=== PATIENT | male | born 1955 | race Caucasian/White ===

== ENCOUNTER 2016-06-21 09:17 | Day surgery (SDC) | payer MEDICAID, OTHER ==
[~2016-06-21] VITALS: Ht 170.2 cm; Wt 96.2 kg
[2016-06-21] MEDS ORDERED: LISINOPRIL (10:02)
[2016-06-21] MEDS ORDERED: IBUPROFEN (10:02)
[2016-06-21] MEDS ORDERED: FERROUS SULFATE (10:02)
[2016-06-21 10:04] VITALS: Ht 170.2 cm; Wt 96.2 kg
[2016-06-21] MEDS ORDERED: PROPOFOL 40 ML ONE (10:07)
[2016-06-21 10:20] VITALS: BP 163/79; PULSE 67; RESP 18
[2016-06-21] MEDS ORDERED: CIPROFLOXACIN 400MG/D5W 200 ML ONE (10:29)
[2016-06-21 11:33] VITALS: BP 154/85; RESP 20
--- NOTE | 2016-06-22 01:35 | GILP ---
DATE OF PROCEDURE: PROCEDURES PERFORMED: 1. Esophagogastroduodenoscopy with banding of varicose vein. 2. Colonoscopy with biopsy. INDICATION: A 60-year-old male undergoing this procedure for colon cancer screening and EGD for floridalma veillance for varicose vein. INFORMED CONSENT: The risk of the procedure, related and unrelated complications, anesthetic risks, alternatives discussed and informed consent was obtained. DESCRIPTION OF PROCEDURE: The patient was brought to the GI lab, sedated by the anesthesiologist. After optimal sedation, scope was passed with much ease into esophagus and he had almost grade 4 to 5 varicose veins. He also had a red april sign on some of the varicose veins. Scope was advanced fur ther down into stomach, he had a maynard gastritis. Duodenum, first and second part was within normal l imits. However, the minor ampulla appeared very prominent indicating that the patient might have a pancreatic divisum. Retroversion done. The gastric varicose vein was identified, which was nothing but the extension of the esophageal varicose vein. So this patient had a gastroesophageal varicose vein grade II. The scope was then removed, attached to the scope and 6 columns of vein were successfully banded. Scope was removed with good patient tolerance. IMPRESSION 1. Grade IV to V esophageal varicose veins with a red april sign, 6 of them successfully banded. 2. Gastric varicose vein which was nothing but the extension of the esophageal varicose vein, gastr oesophageal varicose vein type 2. 3. Severe gastritis. 4. Duodenitis. 5. Prominent minor ampulla. Very prominent minor ampulla, so pancreatic divisum needs to be ruled o ut. PLAN: 1. To re-scope the patient in 2 months and obliterate the rest of the varicose vein. 2. We need to do a CBC, CMP, PT, PTT, to make sure he does not have any coagulation abnormality due to cirrhosis of liver. PROCEDURE: Colonoscopy with the biopsy. The patient was turned around, scope was passed with much ease into rectum and advanced all the way into the cecum. Appendiceal orifice and IC valve identified. 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 He had a profuse amount of biliary juice and throughout the colon, while coming out, mucosa thoroughly inspected and multiple flat lianet yps were seen at 20 cm polyp was biopsied and it started oozing easily and since the patient has cir rhosis of liver and we are not aware of his coagulation profile, I decided not to remove the rest of the polyp. There were 10 to 15 polyps, 7 of them were seen in the rectosigmoid colon and few were seen in the descending colon and all were flat polyps which needs to come out. Patient also had lar ge hemorrhoids and rectal varicose vein. IMPRESSION: 1. Portal colonoscopy with multiple red spots seen throughout the colon. 2. Multiple flat polyps, 10 to 15 in number. One of them biopsied. Bleeding easily. 3. Rectal varicose vein. 4. Large hemorrhoids. 5. Negative all the way into the cecum except for the mildly edematous mucosa secondary to portal h ypertension. PLAN: Review the histopathology of the polyp. The patient's coagulation profile needs to be connec herbert before during a colonoscopy. He definitely needs a repeat colonoscopy and removal of all the po lyps. Dictated By: ÁNGELA RIDDLE/ZOHREH Conf#: [id number] DID#: [id number]
== END 2016-06-21 11:51 | disposition home or self-care (01) ==
LOC: GIL 09:17
PROVIDERS: ATTEND Internal Medicine Gastroenterology
DX: Z12.11 Encounter for screening for malignant neoplasm of colon (principal); I85.00 Esophageal varices without bleeding; K29.60 Other gastritis without bleeding; K64.9 Unspecified hemorrhoids; K29.80 Duodenitis without bleeding; K63.5 Polyp of colon
CPT/HCPCS: 43244; 45380; 88305; J0744; Z7610

== ENCOUNTER 2016-12-19 09:39 | Outpatient (CLI) | payer OTHER ==
[~2016-12-19] VITALS: Ht 165.1 cm; Wt 92.3 kg
[~2016-12-19 09:39] MED LIST: FERROUS SULFATE; IBUPROFEN; LISINOPRIL
[2016-12-19 10:00] VITALS: BP 141/74; PULSE 68; RESP 18; Ht 165.1 cm; Wt 92.3 kg
[2016-12-19] MEDS ORDERED: OXYC5CAP17 PO (10:06)
[2016-12-19] MEDS ORDERED: AMLO2.5T78 PO (10:06)
--- NOTE | 2016-12-19 12:48 | CONS ---
Date/Time of Note Date/Time of Note DATE: 12/19/16 TIME: 12:46 Assessment/Plan Assessment/Plan Additional Assessment/Plan [facility] INITIAL OUTPATIENT CONSULTATION NOTE DATE OF CONSULTATION: 12/19/2016 PLACE OF SERVICE: [facility] ASSESSMENT AND PLAN: A very-pleasant 61-year-old gentleman with cryptogenic cirrhosis and approximately a 5 cm hepatocellular carcinoma in segment 7/8 of his liver. Not eligible for surgical resection given degree of portal hypertension and cirrhosis. Will benefit from local therapy to the liver in the form of transarterial chemoembolization (TACE). Radioembolization is an option as well that could be considered after TACE. Liver transplantation should be considered although the patient likely will not be eligible given possibility of renal cell carcinoma as well as his own reported mass in the thyroid. Systemic chemotherapy in the form of sorafenib was also discussed briefly. Patient can benefit from oncology consultation. I obtain the patient' s permission to present his case in a multidisciplinary tumor board fashion. Discussed above in detail including my rationale behind ineligibility for surgical excision and answered all of his questions to the best of my ability. Note that no family was present in the room during our discussions. Patient appeared to understand and agreed with the plans. With above assessment, I've recommended the followin. Continued multidisciplinary care 2. Schedule patient for TACE 3. Consideration for transplant evaluation 4. Evaluation of renal mass 5. Evaluation of thyroid 6. Continued evaluation by gastroenterology. Follow-up with Dr. Ortiz for repeat upper endoscopy due to prominent ampulla (unsure whether this has already been done). 7. Oncology consultation 8. Multidisciplinary tumor board presentation 9. Clinical trial consideration Thank you very much for having me involved in the care of this very pleasant patient and wonderful family. If you have any questions, please feel free to contact me at [phone]. Nature of presenting problem: High severity Please note that, given the extensive number of diagnoses or management options , the extensive amount and/or complexity of data needed to be reviewed, and high risk of complications and/or morbidity or mortality, this qualifies as high complexity type of decision-making. This visit included careful review of more than 100 pages of outside records as well as multiple imaging studies. Disclaimer: Inadvertent spelling and grammatical errors are likely due to EHR/ dictation software use and do not reflect on the quality of delivered patient care. Also, please note that the electronic time recorded on this node does not necessarily reflect the actual time of the visit. Updated clinical summary: Patient is a very-pleasant 61-year-old gentleman with cryptogenic cirrhosis and approximately a 5 cm hepatocellular carcinoma in segment 7/8 of his liver. Comorbidities: 1. Cirrhosis of unclear etiology, diagnosed perhaps in 2013. Complication of portal hypertension (platelets in the 60s) and mild ascites. Labs January 2016: Creatinine 0.59. Potassium 3.9. Total bilirubin 1.5, alkaline phosphatase 107, AST 37, ALT 23, albumin 3.2, platelet count 61,000. Grade 4-5 esophageal varicose veins with a red april sign, status post banding of 6 of these June 2016 (Dr. Ortiz at [facility]). 2. BMI 33.9 3. HDL deficiency 4. Anemia (on iron pills) 5. Hypertension 6. Lumbago with sciatica, right side (status post 2 spinal surgeries: Laminectomy 1984 and 1989 and other surgery of the lower back August 2016) 7. Chronic pain secondary to #6 above 8. Chest pain June 2016 9. History of malignancy in the family with mother being from it ( lung cancer) 10. History of stroke in the father and heart disease in the family. 11. Severe gastritis, duodenitis and prominent minor ampulla with possibility of pancreatic divisum being raised (EGD [facility] June 2016) 12. Rectal varicose vein with large hemorrhoids and multiple flat polyps, 10- 15 in number, bleeding easily and multiple red spots seen throughout the colon on colonoscopy, [facility] June 2016 13. Depression CONSULTATION REQUESTED BY: Eva Castro MD HISTORY OF PRESENT ILLNESS: The patient is a very pleasant 61-year-old gentleman with above-mentioned comorbidities whom we were kindly asked consult regarding surgical management of his liver mass in the setting of cirrhosis. Patient has occasional abdominal discomfort. No obvious major complications of ascites that has required procedures. He was told that he has a thyroid mass and we know that he has a renal mass (scheduled for evaluation). No issues with major diarrhea or blood in the stool. Reports an 18 pound weight loss over the last month. Appetite has been fairly normal. Has known about cirrhosis since he was told in [place] in 2013. No other major complaints during my visit. ALLERGIES: NO KNOWN DRUG ALLERGIES MEDICATIONS Documented in the electronic records and reviewed by me. Please see the electronic records for details. SOCIAL HISTORY: The patient lives with family. 7 children. Born in [place]. . Currently unemployed.-Tob (former smoker, ex-light cigarette smoker ( 1-9 per day));-ETOH (drank occasionally from 817, last time in 2009, quit);-IVDU FAMILY HISTORY: Father with stroke, history of heart disease in the family, mother from lung cancer. There are no other significant medical, surgical or oncologic issues in the family as reported by the patient or reflected in the chart. REVIEW OF SYSTEMS: Other than mentioned above, there were no other pertinent positives or pertinent negatives in an otherwise complete 14 point review of systems. PHYSICAL EXAMINATION GENERAL: The patient appears to be a very pleasant gentleman of descent lying in bed, appearing stated age,] and otherwise in no acute distress. BMI: 33.9 VITAL SIGNS: AVSS (please also see auto important data if available as well as the electronic records) HEENT: Normocephalic and atraumatic. Extraocular muscles and hearing are grossly intact bilaterally and symmetrically. Sclerae are nonicteric. Oral cavity is clear; oral mucosa appear to be pink and moist. Dentition: Fair to poor. NECK: Supple. There is no lymphadenopathy or JVD. There is no submental, submandibular or supraclavicular lymphadenopathy. CHEST: Rises symmetrically with each breath; patient is breathing comfortably. There are no audible wheezes, rales or rhonchi on the gross exam. HEART: Pulse is regular and palpable on the right wrist. Capillary refill is normal. Carotid pulses are palpable bilaterally and symmetrically in the neck. EXTREMITIES: Lower extremities contain no pitting edema around the ankles bilaterally and symmetrically. ABDOMEN: Abdomen is soft, nontender and nondistended. No evidence of ascites, organomegaly, caput medusae, engorged subcutaneous veins, or other abnormalities. There are no peritoneal signs or guarding. Small nontender umbilical hernia noted. SKIN: Appears to be pink and feels warm to touch. NEUROLOGIC: Awake, alert, and follows commands appropriately. LABORATORY DATA: See above. September 2016: Bilirubin 1.9. Albumin 2.9. Hemoglobin A1c 4.6. Alpha-fetoprotein 46.2. INR 1.46. Platelets 54 (66, July 2016). Hepatitis C antibody nonreactive January 2016. IMAGING: See electronic chart. Please note that I've personally reviewed all pertinent available images and I agree in general with their overall reported findings. Outside CT scan abdomen and pelvis 10/13/2016: Cirrhotic liver, 4.9 x 4.2 cm arterially enhancing lesion in segment 7/8 with portal venous washout, LIRADS 5. 15 mm lesion in subcapsular segment 7 with portal venous washout without definite correlate on the arterial phase (series 6, image 14), LIRADS 3. Additional nonenhancing subcentimeter hepatic lesions are noted, for example in segment 5, measuring 10 mm. Likely a cyst. No portal vein thrombosis noted. Stigmata of portal hypertension, including ascites, splenomegaly, upper abdominal varices including esophageal mucosal varices and right colonic wall thickening noted. Arterially enhancing partially exophytic right renal interpolar posterior mass measuring 20 mm, suggestive of renal cell carcinoma, clear cell type. No evidence of renal vein involvement. Nonspecific lymphadenopathy noted throughout the body. Consultation Date/Type/Reason Admit Date/Time Exam/Review of Systems Vital Signs Vitals Vital Signs Date Time Temp Pulse Resp B/P Pulse Ox O2 Delivery O2 Flow Rate FiO2 12/19/16 10:00 98.1 68 18 141/74 96 Room Air AISHWARYA CAMARA M.D. Dec 19, 2016 12:48
== END 2016-12-19 16:43 | disposition home or self-care (01) ==
LOC: HPC 09:39
PROVIDERS: ATTEND Transplant Surgery
DX: C22.0 Liver cell carcinoma (principal); K74.69 Other cirrhosis of liver; K76.6 Portal hypertension; D64.9 Anemia, unspecified; I10 Essential (primary) hypertension; M54.41 Lumbago with sciatica, right side; G89.29 Other chronic pain; Z80.1 Family history of malignant neoplasm of trachea, bronchus and lung; Z82.3 Family history of stroke; K29.70 Gastritis, unspecified, without bleeding; K29.80 Duodenitis without bleeding; I86.8 Varicose veins of other specified sites; K64.9 Unspecified hemorrhoids; K62.1 Rectal polyp; F32.9 Major depressive disorder, single episode, unspecified; E78.6 Lipoprotein deficiency; E07.9 Disorder of thyroid, unspecified; N28.89 Other specified disorders of kidney and ureter; Z87.891 Personal history of nicotine dependence; R18.8 Other ascites; R16.1 Splenomegaly, not elsewhere classified; I85.10 Secondary esophageal varices without bleeding
CPT/HCPCS: G0463

== ENCOUNTER 2017-01-11 10:05 | Emergency (ER) | payer OTHER ==
[~2017-01-11] VITALS: Ht 165.1 cm; Wt 96.0 kg
[~2017-01-11 10:05] MED LIST changes: +AMLO2.5T78 PO; -FERROUS SULFATE; -IBUPROFEN; -LISINOPRIL; +OXYC5CAP17 PO
[2017-01-11 10:08] VITALS: Ht 165.1 cm; Wt 96.0 kg
[2017-01-11] MEDS ORDERED: HYDROmorphONE 1 MG/ML SYG IV STA (10:38)
[2017-01-11] MEDS ORDERED: ONDANSETRON 4 MG INJ IV STA (10:38)
[2017-01-11] MEDS ORDERED: SOD CHLORIDE 0.9% 1,000 ML IV STA (10:38)
[2017-01-11 11:15] LABS: ABNORMAL IP MESSAGE 1; BASOPHILS % 0.4 % (0.0-2.0); EOSINOPHILS # 0.1 10^3/ul (0.0-0.5); EOSINOPHILS % 2.2 % (0.0-7.0); HEMATOCRIT 44.8 % (42.0-52.0); HEMOGLOBIN 15.5 g/dl (14.0-18.0); LYMPHOCYTES # 1.2 10^3/ul (0.8-2.9); LYMPHOCYTES % 26.6 % (15.0-51.0); MEAN CORPUSCULAR HEMOGLOBIN 31.6 pg (29.0-33.0); MEAN CORPUSCULAR HGB CONC 34.6 g/dl (32.0-37.0); MEAN CORPUSCULAR VOLUME 91.4 fl (82.0-101.0); MEAN PLATELET VOLUME 12.2 fl (7.4-10.4); MONOCYTE # 0.6 10^3/ul (0.3-0.9); MONOCYTES % 12.8 % (0.0-11.0); NEUTROPHILS % 57.6 % (39.0-77.0); PLATELET COUNT 70 10^3/UL (140-415); POSITIVE DIFF @See below; RED CELL DISTRIBUTION WIDTH 14.2 % (11.5-14.5); WHITE BLOOD COUNT 4.6 10^3/ul (4.8-10.8)
[2017-01-11 11:36] LABS: ALBUMIN 3.6 g/dl (3.3-4.9); ALBUMIN/GLOBULIN RATIO 0.81; BILIRUBIN,INDIRECT 2.2 mg/dl (0-1.1); BILIRUBIN,TOTAL 2.2 mg/dl (0.2-1.3); CALCIUM 8.5 mg/dl (8.4-10.2); CREATININE 0.56 mg/dl (0.61-1.24); POTASSIUM 4.1 mmol/L (3.5-5.1)
--- NOTE | 2017-01-11 11:43 | RADRPT ---
PROCEDURE: CT Abdomen and Pelvis without contrast. CLINICAL INDICATION: Abdominal pain TECHNIQUE: CT of the abdomen and pelvis was performed on a multi-detector scanner without IV contr ast. Coronal and sagittal images were reformatted from the axial data set. One or more of the foll owing dose reduction techniques were used: automated exposure control, adjustment of the mA and/or k V according to patient size, use of iterative reconstruction technique. CTDI = 20.34 mGy. DLP = 128 9 mGy-cm. COMPARISON: Ultrasound, 09/07/2015 FINDINGS: CT abdomen: The lung bases are clear. The heart size is normal, without pericardial effusion. Coronary arteria l calcifications are noted. Liver is cirrhotic. Poorly defined 5.7 cm heterogeneous mass is identi fied in the hepatic dome (3-35). Gallbladder wall edema is noted, likely reactive secondary to unde rlying liver disease. No radiodense gallstone or evidence of pericholecystic inflammation is seen. Splenomegaly is noted measuring 19 cm. Biliary tree, pancreas, adrenal glands and kidneys are unre markable. No urolithiasis or obstructive uropathy is identified. The stomach is grossly unremarkab le. Enlarged 19 x 14 mm lymph node is seen adjacent to distal esophagus (3-22). The aorta is of normal caliber. Prominent mike hepatis and gastrohepatic ligament lymph nodes are identified measuring up to 39 x 14 mm (3-60). There is no periaortic lymphadenopathy. CT pelvis: Small amount of ascites is noted. No bowel obstruction, free intraperitoneal air or abscess is iden tified. The appendix is well visualized and normal. There is no diverticulosis, diverticulitis or colitis. Fat containing umbilical hernia is noted. Urinary bladder is grossly unremarkable. Prost ate is mildly enlarged. No pelvic mass or lymphadenopathy is identified. The surrounding osseous structures are remarkable for diffuse degenerative enthesopathy of the spine . No osteolytic or osteoblastic lesion is detected. IMPRESSION: 1. The liver is cirrhotic, with signs of portal hypertension including splenomegaly and small amoun t of ascites. 2. Heterogeneous 5.7 cm mass is identified in the hepatic dome, highly concerning for hepatocellula r carcinoma in the setting of cirrhosis. Multiphase contrast enhanced CT or MRI of the liver is rec ommended for further evaluation. 3. There is nonspecific prominence of mike hepatis, gastrohepatic ligament, and distal para-esopha geal lymph nodes, possibly reactive, though metastatic disease is not excluded. 4. Coronary arterial calcifications are noted. 5. Fat-containing umbilical hernia is seen without incarceration. 6. Prostate is mildly enlarged - correlate with PSA level. RPTAT: AA .Thuan Baez MD, MD Date Time Electronically viewed and signed by .Thuan Baez MD, on 01/11/2017 11:43 .R/
[2017-01-11 12:23] LABS: ADD UMIC YES; UR ASCORBIC ACID NEGATIVE (NEGATIVE); UR BILIRUBIN (Dip) NEGATIVE (NEGATIVE); UR BLOOD (Dip) 1+ mg/dL (NEGATIVE); UR CLARITY SLIGHTLY CLOUDY (CLEAR); UR COLOR AMBER (YELLOW); UR GLUCOSE (Dip) NEGATIVE (NEGATIVE); UR KETONES (Dip) NEGATIVE (NEGATIVE); UR LEUKOCYTE ESTERASE (Dip) NEGATIVE Leu/ul (NEGATIVE); UR MUCUS MODERATE /HPF (NONE SEEN); UR NITRITE (Dip) NEGATIVE (NEGATIVE); UR RBC 2 /HPF (0-5); UR SPECIFIC GRAVITY (Dip) 1.021 (1.003-1.030); UR TOTAL PROTEIN (Dip) 1+ mg/dl (NEGATIVE); UR UROBILINOGEN (Dip) 2+ mg/dL (NEGATIVE)
[2017-01-11] MEDS ORDERED: HYDR2TAB36 PO (12:34)
[2017-01-11] MEDS ORDERED: ONDA4TAB14 PO (12:34)
--- NOTE | 2017-01-11 13:08 | ERD ---
ER Documentation Chief Complaint Date/Time DATE: 01/11/17 TIME: 13:06 Chief Complaint pt bib self with c/o left sided abd pain HPI Patient is a 61-year-old male with hypertension and known liver cancer who presents with left lower quadrant abdominal pain. The pain radiates to his left flank. It started 2 weeks ago but the pain has been worsening. Since yesterday the pain is been sharp and constant. He denies fevers. He has no urinary symptoms. He tried oxycodone for pain. He does not remember the name of his primary doctor. Upon review of old medical records this is the patient' s first visit to the emergency department but he says that recently he was admitted to [facility]. ROS All systems reviewed and are negative except as per history of present illness. Medications Home Meds Active Scripts Ondansetron (Ondansetron Odt) 4 Mg Tab.rapdis, 4 MG PO Q6H Y for NAUSEA AND/OR VOMITING, #10 TAB Prov:BHAVANA GARCIA MD 01/11/17 Hydromorphone Hcl* (Dilaudid*) 2 Mg Tablet, 1 MG PO Q6H Y for PAIN, #7 TAB Prov:BHAVANA GARCIA MD 01/11/17 Reported Medications Amlodipine Besylate* (Amlodipine Besylate*) 2.5 Mg Tablet, 2.5 MG PO DAILY, #30 TAB 12/19/16 Oxycodone Hcl* (IR) (Oxycodone Hcl*) 5 Mg Capsule, 10 MG PO Q4H Y for PAIN, CAP 12/19/16 Allergies Allergies: Coded Allergies: No Known Allergy (Unverified , 01/11/17) PMhx/Soc History of Surgery: Yes (BACK SX) Anesthesia Reaction: No Hx Neurological Disorder: No Hx Respiratory Disorders: Yes Hx Cardiac Disorders: Yes (HTN) Hx Psychiatric Problems: No Hx Miscellaneous Medical Probl: No Hx Alcohol Use: No Hx Substance Use: No Hx Tobacco Use: No Smoking Status: Never smoker FmHx Family History: No diabetes Physical Exam Vitals Vital Signs Date Time Temp Pulse Resp B/P Pulse Ox O2 Delivery O2 Flow Rate FiO2 01/11/17 10:08 98.3 18 149/66 99 Physical Exam Const: Moderate distress secondary to pain Head: Atraumatic Eyes: Normal Conjunctiva ENT: Normal External Ears, Nose and Mouth. Neck: Full range of motion..~ No meningismus. Resp: Clear to auscultation bilaterally Cardio: Regular rate and rhythm, no murmurs Abd: Soft, left lower quadrant abdominal pain without rebound or guarding Skin: No petechiae or rashes Back: No midline or flank tenderness Ext: No cyanosis, or edema Neur: Awake and alert Psych: Normal Mood and Affect Result Diagram: 01/11/17 1043 01/11/17 1043 Results 24 hrs Laboratory Tests Test 01/11/17 10:43 01/11/17 11:55 White Blood Count 4.610^3/ul Red Blood Count 4.9010^6/ul Hemoglobin 15.5g/dl Hematocrit 44.8% Mean Corpuscular Volume 91.4fl Mean Corpuscular Hemoglobin 31.6pg Mean Corpuscular Hemoglobin Concent 34.6g/dl Red Cell Distribution Width 14.2% Platelet Count 7010^3/UL Mean Platelet Volume 12.2fl Neutrophils % 57.6% Lymphocytes % 26.6% Monocytes % 12.8% Eosinophils % 2.2% Basophils % 0.4% Nucleated Red Blood Cells % 0.0/100WBC Neutrophils # (Manual) 2.710^3/ul Lymphocytes # 1.210^3/ul Monocytes # 0.610^3/ul Eosinophils # 0.110^3/ul Basophils # 0.010^3/ul Nucleated Red Blood Cells # 0.010^3/ul Sodium Level 144mmol/L Potassium Level 4.1mmol/L Chloride Level 107mmol/L Carbon Dioxide Level 22mmol/L Anion Gap 19 Blood Urea Nitrogen 6mg/dl Creatinine 0.56mg/dl Glucose Level 92mg/dl Calcium Level 8.5mg/dl Total Bilirubin 2.2mg/dl Direct Bilirubin 0.00mg/dl Indirect Bilirubin 2.2mg/dl Aspartate Amino Transf (AST/SGOT) 89IU/L Alanine Aminotransferase (ALT/SGPT) 115IU/L Alkaline Phosphatase 151IU/L Total Protein 8.0g/dl Albumin 3.6g/dl Globulin 4.40g/dl Albumin/Globulin Ratio 0.81 Lipase 269U/L Urine Color NADIA Urine Clarity SLIGHTLY CLOUDY Urine pH 6.0 Urine Specific [place] 1.021 Urine Ketones NEGATIVEmg/dL Urine Nitrite NEGATIVEmg/dL Urine Bilirubin NEGATIVEmg/dL Urine Urobilinogen 2+mg/dL Urine Leukocyte Esterase NEGATIVELeu/ul Urine Microscopic RBC 2/HPF Urine Microscopic WBC 1/HPF Urine Mucus MODERATE/HPF Urine Hemoglobin 1+mg/dL Urine Glucose NEGATIVEmg/dL Urine Total Protein 1+mg/dl Current Medications Medications (Trade) Dose Ordered Sig/Promise Route PRN Reason Start Time Stop Time Status Last Admin Dose Admin Sodium Chloride (NS) 1,000 ml @ 1,000 mls/hr Q1H STAT IV 01/11/17 10:38 01/11/17 11:37 DC 01/11/17 10:47 Hydromorphone HCl (Dilaudid) 1 mg ONCE STAT IV 01/11/17 10:38 01/11/17 10:39 DC 01/11/17 10:46 Ondansetron HCl (Zofran Inj) 4 mg ONCE STAT IV 01/11/17 10:38 01/11/17 10:39 DC 01/11/17 10:46 Procedures/MDM CT abdomen pelvis shows no acute process to suggest the left lower quadrant pain such as diverticulitis or bowel obstruction per radiology. Patient is a 61-year-old male who presents with abdominal pain. He had a full workup including laboratory studies, urinalysis, and CT scan of the abdomen pelvis. His laboratory studies show a mildly elevated bilirubin which would be consistent with a patient with liver cancer. The patient has a CT scan which does not show any signs of appendicitis, bowel obstruction, or diverticulitis. At this point I believe outpatient management is appropriate. I doubt obstructing kidney stone. The patient was just recently admitted and I do not believe he requires readmission at this time. The patient went to follow-up closely however with his primary doctor. The patient will be given a prescription for Dilaudid and Zofran. He should follow-up with a primary doctor within 24 hours. He was provided with copies of the laboratory studies and CT scan report prior to discharge. Departure Diagnosis: Primary Impression: Abdominal pain Abdominal location: left lower quadrant Qualified Code: R10.32 - Left lower quadrant pain Condition: Fair Patient Instructions: Abdominal Pain Additional Instructions: Llame al doctor MAANA y sheila rena SAEED PARA DENTRO DE 1-2 ARORA.Dgale a la secretaria que nosotros le instruimos hacer esta saeed.Avise o llame si [place]win condicin se empeora antes de la saeed. Regresa aqui si peor o no mejor. BHAVANA GRACIA MD Jan 11, 2017 13:04
== END 2017-01-11 18:10 | disposition home or self-care (01) ==
LOC: E/R 10:05
DX: R10.32 Left lower quadrant pain (principal); I10 Essential (primary) hypertension; Z85.05 Personal history of malignant neoplasm of liver
CPT/HCPCS: 36415; 74176; 80053; 81001; 83690; 85025; 96374; 96375; J1170; J2405; J7030; Z7502

== ENCOUNTER 2017-02-05 08:32 | Day surgery (SDC) | payer OTHER ==
[~2017-02-05] VITALS: Ht 162.6 cm; Wt 5.2 kg
[~2017-02-05 08:32] MED LIST changes: +HYDR2TAB36 PO; +ONDA4TAB14 PO
[2017-02-05] MEDS ORDERED: LISINOPRIL (09:30)
[2017-02-05] MEDS ORDERED: AMLODIPINE BESYLATE (09:30)
[2017-02-05 09:33] VITALS: Ht 162.6 cm; Wt 5.2 kg
[2017-02-05] MEDS ORDERED: PROPOFOL 60 ML ONE (09:56)
[2017-02-05] MEDS ORDERED: LIDOCAINE 2% (SDV) 5 ML INJ ONE (09:56)
[2017-02-05 09:58] VITALS: BP 157/82; PULSE 66; RESP 18
[2017-02-05] MEDS ORDERED: CIPROFLOXACIN 400MG/D5W 200 ML ONE (10:07)
--- NOTE | 2017-02-05 10:45 | OPPN ---
Date/Time of Note Date/Time of Note DATE: 02/05/17 TIME: 10:43 Operative Report Preoperative Diagnosis Surveillance for esophageal varicose vein Postoperative Diagnosis Same Operation/Procedure Performed EGD Banding of 3 columns of grade 4 esophageal varicose veins 5 bands successfully deployed 1 band fell off when patient was coughing. Section also was inadequate. Provider: ÁNGELA LOZANO MD Anesthesia Type: MAC Estimated blood loss: minimal Transfusion Required: no Specimen: none Grafts/Implants: none Complications: no ÁNGELA LOZANO MD Feb 05, 2017 10:45
--- NOTE | 2017-02-06 07:41 | GILP ---
DATE OF PROCEDURE: 02/05/2017 PROCEDURE PERFORMED: EGD with banding of the varicose veins. INDICATIONS FOR PROCEDURE: The patient is a 61-year-old male undergoing this procedure for surveillance of varicose vein and possible banding. The risks of the procedure, related complications, anesthetic risk, alternatives discussed and informed consent was obtained. The patient was brought to the GI lab, sedated by Dr. Tavares. After optimal sedation, scope was passed with much ease into the esophagus. He had a grade 4 varicose vein with the red sign on the varicose vein. Multiple columns of such grade 4 varicose veins are identified. Stomach mucosa revealed congestive gastropathy. On retroversion there was a varicose vein close to the GE junction. Solitary gastric varicose vein identified. The duodenum, 1st and 2nd part including the ampulla appeared normal. The scope was removed and was attached to the scope as wall suction was not greatly working. We banded 4 varicose veins successfully and we ran out of the bands surprisingly. After white band there was no other blue band. I was told there is another blue band after the white band, but when I did suctioning and tried to deploy the band, there was no band. The scope was removed and . At that point, the patient started belching and coughing, so 1 of the bands, the last one white had come out. No bleeding was seen. So at this point, we were worried because of the coughing, the other bands would come out, so decided not to deploy and the scope was removed with good patient tolerance, 4-5 bands were deployed successfully for grade 4 varicose vein, which had a red sign. 1. Solitary gastric varicose vein, which is nothing but extension of esophageal varicose veins. 2. Congestive gastropathy. 3. One band came out when patient was coughing. PLAN: Is to do surveillance EGD after 2 months. Continue present care. The patient has to go back to the oncologist or the IR for a test or procedure. The patient never informed us or to the anesthesiologist that he has a cancer of the liver and also kidney, which we picked it up while reviewing his record. So his compliance is very poor and extremely poor historian. Dictated By: Ole Ortiz MD /cristóbal/karyn /Document#: [id number] ; [facility]
== END 2017-02-05 13:20 | disposition home or self-care (01) ==
LOC: GIL 08:32
PROVIDERS: ATTEND Internal Medicine Gastroenterology
DX: I85.00 Esophageal varices without bleeding (principal); K31.89 Other diseases of stomach and duodenum; I10 Essential (primary) hypertension
CPT/HCPCS: 43244; J0744; Z7610

== ENCOUNTER 2017-04-22 23:46 | Inpatient (IN) | payer OTHER ==
[~2017-04-22] VITALS: Ht 165.1 cm; Wt 97.0 kg
[~2017-04-22 23:46] MED LIST changes: -AMLO2.5T78 PO; +AMLODIPINE BESYLATE; +LISINOPRIL; -ONDA4TAB14 PO; -OXYC5CAP17 PO
[2017-04-23] VITALS (23 sets, daily range): BP systolic 115–153; BP diastolic 55–74; PULSE 65–76; RESP 13–25; TEMP 97.5; Ht 165.1 cm; Wt 97.0 kg
[2017-04-23] MEDS ORDERED: PANTOPRAZOLE IV 80 MG in SOD CHLORIDE 0.9% 100 ML IVPB STA (00:22)
[2017-04-23] MEDS ORDERED: SOD CHLORIDE 0.9% 1,000 ML IV STA (00:22)
[2017-04-23] MEDS ORDERED: CEFTRIAXONE 1 GM/50 ML (PMX) 50 ML IVPB STA (00:22)
[2017-04-23] MEDS ORDERED: OCTREOTIDE 50 MCG in SOD CHLORIDE 0.9% 25 ML IVPB STA (00:22)
[2017-04-23] MEDS ORDERED: PANTOPRAZOLE IV 80 MG in SOD CHLORIDE 0.9% 100 ML IV STA (00:22)
[2017-04-23] MEDS ORDERED: OCTREOTIDE 500 MCG in SOD CHLORIDE 0.9% 49 ML IV STA (00:22)
[2017-04-23] MEDS ORDERED: morphine 4 MG/ML VIAL IV STA ×2 (01:06→04:07)
[2017-04-23] MEDS ORDERED: ONDANSETRON 4 MG INJ IV STA ×2 (01:06→04:10)
[2017-04-23 01:07] LABS: ABNORMAL IP MESSAGE 1; BASOPHILS % 0.3 % (0.0-2.0); EOSINOPHILS # 0.1 10^3/ul (0.0-0.5); EOSINOPHILS % 2.2 % (0.0-7.0); HEMATOCRIT 36.1 % (42.0-52.0); HEMOGLOBIN 12.6 g/dl (14.0-18.0); LYMPHOCYTES # 0.7 10^3/ul (0.8-2.9); LYMPHOCYTES % 21.6 % (15.0-51.0); MEAN CORPUSCULAR HEMOGLOBIN 31.6 pg (29.0-33.0); MEAN CORPUSCULAR HGB CONC 34.9 g/dl (32.0-37.0); MEAN CORPUSCULAR VOLUME 90.5 fl (82.0-101.0); MEAN PLATELET VOLUME 11.8 fl (7.4-10.4); MONOCYTE # 0.3 10^3/ul (0.3-0.9); MONOCYTES % 8.4 % (0.0-11.0); NEUTROPHIL # 2.2 10^3/ul (1.6-7.5); NEUTROPHILS % 67.2 % (39.0-77.0); PLATELET COUNT 60 10^3/UL (140-415); POSITIVE DIFF @See below; RED BLOOD COUNT 3.99 10^6/ul (4.70-6.10); RED CELL DISTRIBUTION WIDTH 14.6 % (11.5-14.5); WHITE BLOOD COUNT 3.2 10^3/ul (4.8-10.8)
--- NOTE | 2017-04-23 01:11 | ERD ---
ER Documentation Chief Complaint Chief Complaint vomiting blood tonight, hx liver cirrohsis HPI 61-year-old male was vomiting blood tonight. Patient has history of liver cirrhosis and esophageal varices. He said he had 2-3 episodes of blood- streaked vomitus. No fevers no chills. No abdominal pain. No other current complaints. ROS All systems reviewed and are negative except as per history of present illness. Medications Home Meds Active Scripts Hydromorphone Hcl* (Dilaudid*) 2 Mg Tablet, 1 MG PO Q6H Y for PAIN, #7 TAB Prov:BHAVANA GARCIA MD 01/11/17 Reported Medications [Lisinopril] No Conflict Check 02/05/17 [Amlodipine Besylate] No Conflict Check 02/05/17 Allergies Allergies: Coded Allergies: No Known Allergy (Unverified , 01/11/17) PMhx/Soc History of Surgery: Yes (BACK SX) Anesthesia Reaction: No Hx Neurological Disorder: No Hx Respiratory Disorders: No Hx Cardiac Disorders: Yes (HTN, ) Hx Psychiatric Problems: No Hx Miscellaneous Medical Probl: No Hx Alcohol Use: No Hx Substance Use: No Hx Tobacco Use: No Smoking Status: Former smoker Physical Exam Vitals Vital Signs Date Time Temp Pulse Resp B/P Pulse Ox O2 Delivery O2 Flow Rate FiO2 04/23/17 00:30 97.5 74 23 145/75 100 Room Air 04/22/17 23:50 97.5 77 20 159/72 99 Physical Exam Const: [] Head: Atraumatic Eyes: Normal Conjunctiva ENT: Normal External Ears, Nose and Mouth. Neck: Full range of motion..~ No meningismus. Resp: Clear to auscultation bilaterally Cardio: Regular rate and rhythm, no murmurs Abd: Soft, non tender, non distended. Normal bowel sounds Skin: No petechiae or rashes Back: No midline or flank tenderness Ext: No cyanosis, or edema Neur: Awake and alert Psych: Normal Mood and Affect Results 24 hrs Laboratory Tests Test 04/23/17 00:50 White Blood Count Pending Red Blood Count Pending Hemoglobin Pending Hematocrit Pending Mean Corpuscular Volume Pending Mean Corpuscular Hemoglobin Pending Mean Corpuscular Hemoglobin Concent Pending Red Cell Distribution Width Pending Platelet Count Pending Mean Platelet Volume Pending Current Medications Medications (Trade) Dose Ordered Sig/Promise Route PRN Reason Start Time Stop Time Status Last Admin Dose Admin Sodium Chloride 1,000 ml @ 1,000 mls/hr Q1H STAT IV 04/23/17 00:22 04/23/17 01:21 04/23/17 00:56 Pantoprazole 80 mg/Sodium Chloride 100 ml @ 400 mls/hr ONCE STAT IVPB 04/23/17 00:22 04/23/17 00:36 DC Pantoprazole 80 mg/Sodium Chloride 100 ml @ 10 mls/hr ONCE STAT IV 04/23/17 00:22 04/23/17 10:21 Octreotide Acetate 50 mcg/ Sodium Chloride 26 ml @ 100 mls/hr Q16M STAT IVPB 04/23/17 00:22 04/23/17 00:37 DC Octreotide Acetate 500 mcg/ Sodium Chloride 50 ml @ 5 mls/hr ONCE STAT IV 04/23/17 00:22 04/23/17 10:21 Ceftriaxone Sodium (Rocephin) 50 ml @ 100 mls/hr ONCE STAT IVPB 04/23/17 00:22 04/23/17 00:51 DC 04/23/17 00:57 Morphine Sulfate (morphine) 4 mg ONCE STAT IV 04/23/17 01:06 04/23/17 01:07 DC Ondansetron HCl (Zofran Inj) 4 mg ONCE STAT IV 04/23/17 01:06 04/23/17 01:07 DC Procedures/MDM Medical decision-makin-year-old male with hematemesis. Started on Protonix and sent Sandostatin drip. Patient admitted to telemetry setting the panel physician. Critical Care: Time: 45 minutes Treatments/Evaluations: Close monitoring and treatment of unstable vital signs, cardiorespiratory, and neurologic status, while maintaining tight balance of fluid, respiratory, and cardiac interventions. This time is independent of separate billable procedural time Departure Diagnosis: Primary Impression: Hematemesis Nausea presence: unspecified Qualified Code: K92.0 - Hematemesis, presence of nausea not specified Condition: Serious NAEL CISNEROS Apr 23, 2017 01:11
[2017-04-23 01:27] LABS: ALANINE AMINOTRANSFERASE 49 IU/L (13-69); ALBUMIN 3.1 g/dl (3.3-4.9); ALBUMIN/GLOBULIN RATIO 0.81; ALKALINE PHOSPHATASE 147 IU/L (42-121); ANION GAP 8 (8-16); ASPARTATE AMINO TRANSFERASE 55 IU/L (15-46); BILIRUBIN,INDIRECT 1.2 mg/dl (0-1.1); BILIRUBIN,TOTAL 1.2 mg/dl (0.2-1.3); BLOOD UREA NITROGEN 10 mg/dl (7-20); CALCIUM 8.6 mg/dl (8.4-10.2); CARBON DIOXIDE 29 mmol/L (21-31); CHLORIDE 110 mmol/L (97-110); CREATININE 0.55 mg/dl (0.61-1.24); GLUCOSE 124 mg/dl (70-220); POTASSIUM 4.3 mmol/L (3.5-5.1); SODIUM 143 mmol/L (135-144); TOTAL PROTEIN 6.9 g/dl (6.1-8.1)
[2017-04-23 01:40] LABS: TROPONIN-I < 0.012 ng/ml (0.00-0.12)
[2017-04-23 01:42] LABS: INR 1.46; PT RATIO 1.4
[2017-04-23 01:43] LABS: PARTIAL THROMBOPLASTIN TIME 37.7 Sec (25.0-35.0)
[2017-04-23] MEDS ORDERED: NACL 0.9% 3 ML SYG IV SCH (05:00)
[2017-04-23] MEDS ORDERED: ONDANSETRON 4 MG INJ IV PRN (05:00)
[2017-04-23] MEDS ORDERED: ALBUTEROL/IPRATROPIUM (NEB) 3 ML AMP HHN PRN (05:00)
[2017-04-23] MEDS: DEXTROSE 5%-0.45% NACL 1,000 ML IV SCH ×4 (06:05→20:01)
[2017-04-23] MEDS: PANTOPRAZOLE IV 80 MG in SOD CHLORIDE 0.9% 100 ML IV SCH ×3 (06:11→22:32)
[2017-04-23 06:53] LABS: ABNORMAL IP MESSAGE 1; BASOPHILS % 0.3 % (0.0-2.0); EOSINOPHILS # 0.1 10^3/ul (0.0-0.5); EOSINOPHILS % 1.9 % (0.0-7.0); HEMATOCRIT 33.6 % (42.0-52.0); HEMOGLOBIN 11.6 g/dl (14.0-18.0); LYMPHOCYTES # 0.9 10^3/ul (0.8-2.9); LYMPHOCYTES % 28.4 % (15.0-51.0); MEAN CORPUSCULAR HEMOGLOBIN 31.4 pg (29.0-33.0); MEAN CORPUSCULAR HGB CONC 34.5 g/dl (32.0-37.0); MEAN CORPUSCULAR VOLUME 90.8 fl (82.0-101.0); MEAN PLATELET VOLUME 11.7 fl (7.4-10.4); MONOCYTE # 0.3 10^3/ul (0.3-0.9); MONOCYTES % 9.4 % (0.0-11.0); NEUTROPHIL # 1.9 10^3/ul (1.6-7.5); NEUTROPHILS % 59.7 % (39.0-77.0); PLATELET COUNT 58 10^3/UL (140-415); POSITIVE DIFF @See below; RED CELL DISTRIBUTION WIDTH 14.6 % (11.5-14.5); WHITE BLOOD COUNT 3.1 10^3/ul (4.8-10.8)
[2017-04-23 07:24] LABS: ALBUMIN 2.7 g/dl (3.3-4.9); ALBUMIN/GLOBULIN RATIO 0.72; BILIRUBIN,INDIRECT 1.2 mg/dl (0-1.1); BILIRUBIN,TOTAL 1.2 mg/dl (0.2-1.3); CALCIUM 8.2 mg/dl (8.4-10.2); CREATININE 0.53 mg/dl (0.61-1.24); MAGNESIUM 1.8 mg/dl (1.7-2.5); PHOSPHORUS 3.7 mg/dl (2.5-4.9); POTASSIUM 4.5 mmol/L (3.5-5.1); TOTAL PROTEIN 6.4 g/dl (6.1-8.1)
--- NOTE | 2017-04-23 07:32 | HP ---
Date/Time of Note Date/Time of Note DATE: 04/23/17 TIME: 07:20 Assessment/Plan Lines/Catheters IV C[facility]ter Type ([facility] Peripheral IV Urinary Cath still in place: No Assessment/Plan Assessment/Plan 1. Upper GI bleed -Likely from bleeding gastric varices vs esophageal -Patient with a history of recent EGD was a finding of grade 4 solitary gastric varicose vein and is status post multiple banding -Will notify Dr. Lazaro, his prop cutter -will treat with Protonix and octreotide drip -Monitor H&H and transfuse as needed 2. History of cryptogenic HCC -Based on hepatobiliary note, patient was deemed to be not a surgical candidate because of degree of portal hypertension and cirrhosis. Plan was for chemoembolization as well as for a possible consideration for liver transplant even though there was a concern for possible renal cell carcinoma and thyroid mass which needed further workup. Plan is to have an oncology consult while the patient is in-house 3. Hypertension: BP was in acceptable range -Continue antihypertensives adjustment as needed HPI/ROS Admit Date/Time Admit Date/Time Apr 23, 2017 at 01:38 Hx of Present Illness This is a 61-year-old male with a history of liver cirrhosis, portal hypertension, HCC, and solitary gastric varicose vein, status post banding almost 3 months ago. Patient presents to the ER complaining of abdominal pain and vomiting blood. He underwent an EGD here at [facility] in January of this year by Dr. Lazaro with a finding of grade 4 solitary gastric varicose vein and is status post banding with plan for a repeat EGD in 2 months. When patient presented to the ER, hemoglobin was 12.6 and a vitals were stable. As far as his HCC is concerned, based on hepatobiliary note, he is considered to be not a surgical candidate due to the degree of cirrhosis and portal hypertension. PMH/Family/Social Social History Smoking Status: Former smoker Exam/Review of Systems Vital Signs Vitals Vital Signs Date Time Temp Pulse Resp B/P Pulse Ox O2 Delivery O2 Flow Rate FiO2 04/23/17 05:37 69 04/23/17 05:15 17 112/59 99 Room Air 04/23/17 00:30 97.5 Exam Constitutional: other (No acute distress) Head: atraumatic, normocephalic Eyes: EOMI, PERRL Respiratory: clear to auscultation, normal air movement Cardiovascular: regular rate and rhythm Extremities: normal pulses Labs Result Diagram: 04/23/17 0631 04/23/17 0050 Medications Medications Current Medications Dextrose/Sodium Chloride (D5-1/2ns) 1,000 ml @ 100 mls/hr Q10H IV Last administered on 04/23/17t 06:05; Admin Dose 100 MLS/HR; Start 04/23/17 at 04:36 Ondansetron HCl (Zofran Inj) 4 mg Q6H PRN IV NAUSEA AND/OR VOMITING; Start 04/23/17 at 05:00 Morphine Sulfate 2 mg 2 mg Q4H PRN IV SEVERE PAIN LEVEL 7-10; Start 04/23/17 at 05:00 Pantoprazole/ Sodium Chloride (Protonix Iv/NS) 100 ml @ 10 mls/hr Q10H IV ; Start 04/23/17 at 04:36 Influenza Virus Vaccine (Fluzone) 0.5 ml ONCE ONCE IM* ; Start 04/24/17 at 09:00 ; Stop 04/24/17 at 09:01 NAEL BALTAZAR MD Apr 23, 2017 07:31
[2017-04-23] MEDS: morphine 2 MG INJ IV PRN ×2 (12:13→20:01)
[2017-04-23] MEDS ORDERED: FENTAnyl 50 MCG/ML VIAL ONE (17:48)
[2017-04-23] MEDS ORDERED: PROPOFOL 40 ML ONE (17:48)
[2017-04-23] MEDS ORDERED: SOD CHLORIDE 0.9% 250 ML IV* ONE (18:17)
--- NOTE | 2017-04-23 18:26 | OPPN ---
Date/Time of Note Date/Time of Note DATE: 04/23/17 TIME: 18:23 Proc Note GI Procedure Date 04/23/17 Indication: treatment Pre-procedure Diagnosis Hematemesis Post-procedure Diagnosis Giant esophageal varicose vein multiple Red weal sign positive 5 bands successfully deployed 1 of the varicose veins started oozing We observed him for half an hour and made sure that he was not bleeding and there was no evidence of aspiration Procedure Performed: Endoscopy Surgeon see signature line Metaphysician none Anesthesia Type: MAC Tourniquet Time none EBL none Transfusion required none Biopsy 1: None Grafts/Implants none Tubes/Drains none Complication(s) none Disposition: PACU Procedure Description Report dictated ÁNGELA LOZANO MD Apr 23, 2017 18:26
[2017-04-23 19:07] LABS: ABNORMAL IP MESSAGE 1; BASOPHILS % 0.5 % (0.0-2.0); EOSINOPHILS # 0.1 10^3/ul (0.0-0.5); EOSINOPHILS % 1.5 % (0.0-7.0); HEMATOCRIT 31.4 % (42.0-52.0); HEMOGLOBIN 10.6 g/dl (14.0-18.0); LYMPHOCYTES # 0.8 10^3/ul (0.8-2.9); LYMPHOCYTES % 20.1 % (15.0-51.0); MEAN CORPUSCULAR HEMOGLOBIN 31.2 pg (29.0-33.0); MEAN CORPUSCULAR HGB CONC 33.8 g/dl (32.0-37.0); MEAN CORPUSCULAR VOLUME 92.4 fl (82.0-101.0); MEAN PLATELET VOLUME 11.6 fl (7.4-10.4); MONOCYTE # 0.2 10^3/ul (0.3-0.9); MONOCYTES % 5.8 % (0.0-11.0); NEUTROPHILS % 71.6 % (39.0-77.0); PLATELET COUNT 60 10^3/UL (140-415); POSITIVE DIFF @See below; RED CELL DISTRIBUTION WIDTH 14.9 % (11.5-14.5); WHITE BLOOD COUNT 4.1 10^3/ul (4.8-10.8)
[2017-04-23] MEDS: CIPROFLOXACIN 400MG/D5W 200 ML IVPB SCH (20:01)
[2017-04-23] MEDS: METOCLOPRAMIDE 10 MG INJ IV SCH (20:01)
--- NOTE | 2017-04-23 20:05 | CONS ---
DATE OF ADMISSION: 04/23/2017 DATE OF CONSULTATION: GASTROINTESTINAL CONSULTATION HISTORY OF PRESENT ILLNESS: We have a 61-year-old male with a history of cirrhosis of liver, hepato cellular cancer, admitted to the hospital for hematemesis. No abdominal pain, no weight loss. No f ever, no chills. No chest pain, no shortness of breath. 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 Patient had EGD don e 4 to 5 months ago, and he had a large varicose vein which was successfully banded. He is also on the transplant list at [facility]. The patient also was found to have a renal cell tumor for which the wor kup is in progress. PAST MEDICAL HISTORY: Former smoker, hypertension. PHYSICAL EXAMINATION: GENERAL: Well-built, nourished, not in distress. VITAL SIGNS: Stable. HEENT: Unremarkable. NECK: Supple. No thyromegaly. No lymphadenopathy. ABDOMEN: Benign. EXTREMITIES: No edema. CENTRAL NERVOUS SYSTEM: Grossly within normal limits. CARDIOVASCULAR: No murmur, gallop or click. LUNGS: Clear. LABORATORY DATA: Stool for occult blood was positive. Hematocrit is 33. INR is 1.4. The platelet count is 58. IMPRESSION: 1. Upper gastrointestinal bleeding, most probably from varicose veins or post-banding ulcer. 2. Cirrhosis of liver. 3. Hepatocellular carcinoma. 4. Hypertension. 5. Obesity. 6. Renal cell tumor. PLAN: At this point is to monitor H and H. Continue PPI, octreotide and we will the patient for therapeutic endoscopy. Dictated By: ÁNGELA RIDDLE/ZOHREH Conf#: [id number] DID#: [id number] CC: NAEL BALTAZAR MD;*EndCC*
[2017-04-23] MEDS: OCTREOTIDE 1 MG in SOD CHLORIDE 0.9% 95 ML IV SCH (21:11)
--- NOTE | 2017-04-23 21:32 | GILP ---
DATE OF PROCEDURE: PROCEDURE: Esophagogastroduodenoscopy with banding. INDICATIONS FOR PROCEDURE: A 61-year-old male undergoing this procedure for hematemesis is known to have cirrhosis of liver. INFORMED CONSENT: The risks of the procedure, related and unrelated complications, anesthetic risks , alternatives discussed and informed consent was obtained. DESCRIPTION OF PROCEDURE: The patient was brought to the GI lab, sedated by Dr. Acevedo. After o ptimal sedation, scope was passed with much ease into esophagus and he had a huge, giant varicose ve in, varicose vein red april sign identified. Scope was advanced further down into stomac h. There were some undigested food particles in the fundal area. Rest of the stomach was clean. R etroversion done. Again, the food was seen in the fundal area, but no active bleeding was identifie d. The food in the fundal area was only 5%, so at this point, decided to remove the scope and 7-lalo oter was introduced. The patient was rescoped. The varicose vein identified. Five bands were succ essfully deployed. While coming out, patient started bleeding. We observed it. Bleeding had reduc ed and appeared to have stopped, so I removed the scope. We observed him for a half an hour in the GI lab, no further bleeding was noted, so decided to transfer him to the recovery room. Patient jude erated the procedure well. IMPRESSION: 1. Large or giant varicose vein with red april sign positive. Five bands successfully deployed. 2. There was bleeding seen at the end of the procedure, but bleeding seems to have stopped. PLAN: To start the patient on octreotide drip, continue IV antibiotics, continue PPI. We will jassi tor H and H closely and transfuse on a need basis. Dictated By: ÁNGELA LOZANO MD PJ/NTS Conf#: [id number] DID#: [id number] CC: NAEL BALTAZAR MD;*EndCC*
[2017-04-23] MEDS: CEPASTAT LOZENGE MT PRN (23:23)
[2017-04-24] VITALS (10 sets, daily range): BP systolic 109–158; BP diastolic 55–79; PULSE 67–83; RESP 19–20
[2017-04-24] MEDS: PANTOPRAZOLE IV 80 MG in SOD CHLORIDE 0.9% 100 ML IV SCH ×2 (00:36→09:59)
[2017-04-24 00:46] LABS: ABNORMAL IP MESSAGE 1; BASOPHILS % 0.4 % (0.0-2.0); EOSINOPHILS # 0.1 10^3/ul (0.0-0.5); EOSINOPHILS % 1.3 % (0.0-7.0); HEMATOCRIT 30.2 % (42.0-52.0); HEMOGLOBIN 10.3 g/dl (14.0-18.0); LYMPHOCYTES # 0.8 10^3/ul (0.8-2.9); LYMPHOCYTES % 18.5 % (15.0-51.0); MEAN CORPUSCULAR HEMOGLOBIN 31.5 pg (29.0-33.0); MEAN CORPUSCULAR HGB CONC 34.1 g/dl (32.0-37.0); MEAN CORPUSCULAR VOLUME 92.4 fl (82.0-101.0); MONOCYTE # 0.4 10^3/ul (0.3-0.9); MONOCYTES % 7.8 % (0.0-11.0); NEUTROPHIL # 3.2 10^3/ul (1.6-7.5); NEUTROPHILS % 71.8 % (39.0-77.0); PLATELET COUNT 54 10^3/UL (140-415); POSITIVE DIFF @See below; RED BLOOD COUNT 3.27 10^6/ul (4.70-6.10); RED CELL DISTRIBUTION WIDTH 15.1 % (11.5-14.5); WHITE BLOOD COUNT 4.5 10^3/ul (4.8-10.8)
[2017-04-24] MEDS: METOCLOPRAMIDE 10 MG INJ IV SCH ×4 (05:14→18:00)
[2017-04-24 08:35] LABS: ABNORMAL IP MESSAGE 1; BASOPHILS % 0.3 % (0.0-2.0); EOSINOPHILS # 0.1 10^3/ul (0.0-0.5); EOSINOPHILS % 2.2 % (0.0-7.0); HEMATOCRIT 30.2 % (42.0-52.0); HEMOGLOBIN 10.3 g/dl (14.0-18.0); LYMPHOCYTES # 0.8 10^3/ul (0.8-2.9); LYMPHOCYTES % 22.8 % (15.0-51.0); MEAN CORPUSCULAR HEMOGLOBIN 31.4 pg (29.0-33.0); MEAN CORPUSCULAR HGB CONC 34.1 g/dl (32.0-37.0); MEAN CORPUSCULAR VOLUME 92.1 fl (82.0-101.0); MEAN PLATELET VOLUME 11.9 fl (7.4-10.4); MONOCYTE # 0.3 10^3/ul (0.3-0.9); MONOCYTES % 8.2 % (0.0-11.0); NEUTROPHIL # 2.4 10^3/ul (1.6-7.5); NEUTROPHILS % 66.2 % (39.0-77.0); PLATELET COUNT 50 10^3/UL (140-415); POSITIVE DIFF @See below; RED BLOOD COUNT 3.28 10^6/ul (4.70-6.10); WHITE BLOOD COUNT 3.7 10^3/ul (4.8-10.8)
[2017-04-24 08:57] LABS: CALCIUM 7.9 mg/dl (8.4-10.2); CREATININE 0.64 mg/dl (0.61-1.24); MAGNESIUM 1.8 mg/dl (1.7-2.5); PHOSPHORUS 3.1 mg/dl (2.5-4.9); POTASSIUM 3.8 mmol/L (3.5-5.1)
[2017-04-24] MEDS ORDERED: INFLUENZA VIRUS VACCINE 0.5 ML (DISPENSING) IM* ONE (09:00)
[2017-04-24] MEDS: DEXTROSE 5%-0.45% NACL 1,000 ML IV SCH (09:57)
[2017-04-24] MEDS: CIPROFLOXACIN 400MG/D5W 200 ML IVPB SCH (09:57)
[2017-04-24] MEDS: OCTREOTIDE 1 MG in SOD CHLORIDE 0.9% 95 ML IV SCH (13:16)
[2017-04-24] MEDS: CEPASTAT LOZENGE MT PRN (13:16)
[2017-04-24] MEDS ORDERED: CIPR500T4 PO (17:05)
[2017-04-24] MEDS ORDERED: PROP10TA6 PO (17:05)
--- NOTE | 2017-04-24 17:06 | PDOCDIS ---
Discharge Instructions CONDITION Patient Condition: Good HOME CARE INSTRUCTIONS: Diet Instructions: Reduced Sodium ACTIVITY: Activity Restrictions: No Restrictions FOLLOW UP/APPOINTMENTS Follow-up Plan FOLLOW UP WITH YOUR PRIMARY CARE PHYSICIAN IN 1-2 WEEKS, F/U WITH YOUR LIVER SPECIALIST SCHEDULED DORA CANTOR Apr 24, 2017 17:06
--- NOTE | 2017-04-24 17:25 | CONS ---
Date/Time of Note Date/Time of Note DATE: 04/24/17 TIME: 17:24 Assessment/Plan Assessment/Plan Additional Assessment/Plan IMPRESSION: 1. Upper gastrointestinal bleeding, most probably from varicose veins or post- banding ulcer. 2. Cirrhosis of liver. 3. Hepatocellular carcinoma. 4. Hypertension. 5. Obesity. 6. Renal cell tumor. Plan Continue PPI We will start the patient on the beta-dana Inderal 10 mg p.o. twice daily. Patient needs repeat endoscopy and banding in 6 weeks Cipro for 5 more days Consultation Date/Type/Reason Admit Date/Time Apr 23, 2017 at 01:38 Initial Consult Date 24 HR Interval Summary Free Text/Dictation Patient is hungry and wants solid food Constitutional: improved Exam/Review of Systems Vital Signs Vitals Vital Signs Date Time Temp Pulse Resp B/P Pulse Ox O2 Delivery O2 Flow Rate FiO2 04/24/17 16:10 67 04/24/17 15:37 98.1 19 151/79 96 04/23/17 19:26 Room Air 04/23/17 19:18 2.0 Intake and Output 04/23/17 04/23/17 04/24/17 15:00 23:00 07:00 Intake Total 65 ml 1235 ml 750 ml Output Total 300 ml Balance 65 ml 1235 ml 450 ml Exam Constitutional: alert, oriented, well developed Psych: nl mood/affect, no complaints Head: atraumatic, normocephalic Eyes: EOMI, PERRL, nl conjunctiva, nl lids, nl sclera ENMT: nl external ears & nose, nl lips & teeth, nl nasal mucosa & septum Neck: non-tender, supple Respiratory: clear to auscultation, normal air movement Cardiovascular: nl pulses, regular rate and rhythm Gastrointestinal: nl liver, spleen, non-tender, soft Musculoskeletal: nl extremities to inspection, nl gait and stance Extremities: normal pulses Neurological: ELECTROENCEPHALOGRAPHIC TECHNOLOGIST II-XII intact, nl mental status, nl speech, nl strength Skin: nl turgor, No rash or lesions Lymph: nl lymph nodes Results Result Diagram: 04/24/17 0717 04/24/17 0717 Results 24 hrs Laboratory Tests Test 04/23/17 18:53 04/24/17 00:15 04/24/17 07:17 White Blood Count 4.1 #L 4.5 L 3.7 L Red Blood Count 3.40 L 3.27 L 3.28 L Hemoglobin 10.6 L 10.3 L 10.3 L Hematocrit 31.4 L 30.2 L 30.2 L Mean Corpuscular Volume 92.4 92.4 92.1 Mean Corpuscular Hemoglobin 31.2 31.5 31.4 Mean Corpuscular Hemoglobin Concent 33.8 34.1 34.1 Red Cell Distribution Width 14.9 H 15.1 H 15.0 H Platelet Count 60 L 54 L 50 L Mean Platelet Volume 11.6 H 12.0 H 11.9 H Neutrophils % 71.6 71.8 66.2 Lymphocytes % 20.1 18.5 22.8 Monocytes % 5.8 7.8 8.2 Eosinophils % 1.5 1.3 2.2 Basophils % 0.5 0.4 0.3 Nucleated Red Blood Cells % 0.0 0.0 0.0 Neutrophils # 3.0 3.2 2.4 Lymphocytes # 0.8 0.8 0.8 Monocytes # 0.2 L 0.4 0.3 Eosinophils # 0.1 0.1 0.1 Basophils # 0.0 0.0 0.0 Nucleated Red Blood Cells # 0.0 0.0 0.0 Sodium Level 143 Potassium Level 3.8 Chloride Level 110 Carbon Dioxide Level 28 Anion Gap 9 Blood Urea Nitrogen 12 Creatinine 0.64 Glucose Level 106 Calcium Level 7.9 L Phosphorus Level 3.1 Magnesium Level 1.8 Medications Medications Current Medications Dextrose/Sodium Chloride (D5-1/2ns) 1,000 ml @ 100 mls/hr Q10H IV Last administered on 04/24/17 09:57; Admin Dose 100 MLS/HR; Start 04/23/17 at 04:36 Ondansetron HCl (Zofran Inj) 4 mg Q6H PRN IV NAUSEA AND/OR VOMITING Last administered on 04/23/17 12:13; Admin Dose 4 MG; Start 04/23/17 at 05:00 Morphine Sulfate 2 mg 2 mg Q4H PRN IV SEVERE PAIN LEVEL 7-10 Last administered on 04/23/17 20:01; Admin Dose 2 MG; Start 04/23/17 at 05:00 Pantoprazole 80 mg/Sodium Chloride 100 ml @ 10 mls/hr Q10H IV Last administered on 04/24/17 09:59; Admin Dose 10 MLS/HR; Start 04/23/17 at 04:36 Octreotide Acetate/Sodium Chloride (Sandostatin/NS) 100 ml @ 5 mls/hr Q20H IV Last administered on 04/24/17 13:16; Admin Dose 5 MLS/HR; Start 04/23/17 at 18: 30 Metoclopramide HCl 10 mg 10 mg Q6 IV Last administered on 04/24/17 09:58; Admin Dose 10 MG; Start 04/23/17 at 18:45 Ciprofloxacin/ Dextrose (Cipro Ivpb) 200 ml @ 200 mls/hr Q12 IVPB Last administered on 04/24/17 09:57; Admin Dose 200 MLS/HR; Start 04/23/17 at 18:40 Phenol (Cepastat Lozenge) 1 lozenge Q1H PRN MT SORE THROAT Last administered on 04/24/17 13:16; Admin Dose 1 LOZENGE; Start 04/23/17 at 22:00 ÁNGELA LOZANO MD Apr 24, 2017 17:25
--- NOTE | 2017-04-25 18:55 | DS ---
Date/Time of Note Date/Time of Note DATE: 04/25/17 TIME: 18:49 Discharge Summary Admission/Discharge Info Admit Date/Time Apr 23, 2017 at 01:38 Discharge Date/Time Apr 24, 2017 at 19:20 Discharge Diagnosis 1. Upper GI bleed secondary to bleeding gastric varices status post multiple banding GI consultation appreciated Patient is status post Protonix and octreotide drip No further evidence of GI bleeding DC with antibiotics for SBP prophylaxis DC with propanolol Continue home meds Patient follow-up with animal caretaker supervisor and with Dr. Ortiz 2. History of cryptogenic cirrhosis with HCC -Based on hepatobiliary note, patient was deemed to be not a surgical candidate because of degree of portal hypertension and cirrhosis. Plan was for chemoembolization as well as for a possible consideration for liver transplant even though there was a concern for possible renal cell carcinoma and thyroid mass which needed further workup Patient to follow-up with animal caretaker supervisor as outpatient 3. Hypertension: Continue home meds Patient Condition: Good Hospital Course Patient is a 61-year-old male with a history of cryptogenic liver cirrhosis, portal hypertension, HCC, and solitary gastric varicose vein, status post banding almost 3 months ago. Patient presents to the ER complaining of abdominal pain and vomiting blood. Patient was seen by GI was found to have bleeding gastric varices and is status post banding. Patient was on a Protonix and octreotide drip and his upper GI bleeding did resolve. Patient was started on antibiotics for SBP prophylaxis. Patient was clear for DC per GI with plans for follow-up with animal caretaker supervisor and management psychologist as outpatient. On the day of discharge patient's vitals, labs and physical exam are stable patient had no acute complaints questions answered. Home Meds Active Scripts Ciprofloxacin Hcl* (Ciprofloxacin Hcl*) 500 Mg Tablet, 500 MG PO BID for 4 Days , #8 TAB Prov:DORA CANTOR 04/24/17 Propranolol Hcl* (Propranolol Hcl*) 10 Mg Tablet, 10 MG PO BID, #60 TAB 1 Refill Prov:DORA CANTOR 04/24/17 Hydromorphone Hcl* (Dilaudid*) 2 Mg Tablet, 1 MG PO Q6H Y for PAIN, #7 TAB Prov:BHAVANA GARCIA MD 01/11/17 Reported Medications [Lisinopril] No Conflict Check 02/05/17 [Amlodipine Besylate] No Conflict Check 02/05/17 Follow-up Plan FOLLOW UP WITH YOUR PRIMARY CARE PHYSICIAN IN 1-2 WEEKS, F/U WITH YOUR LIVER SPECIALIST SCHEDULED Primary Care Provider [facility] Time spent on discharge: > 30 minutes DORA CANTOR Apr 25, 2017 18:55
== END 2017-04-24 19:20 | disposition home or self-care (01) | DRG 432 ==
LOC: E/R 23:46 → TEL 04-23 01:38
PROVIDERS: ADMIT Internal Medicine; ATTEND Internal Medicine
PROC: 0W3P8ZZ Control Bleeding in Gastrointestinal Tract, Via Natural or Artificial Opening Endoscopic (ICD-10-PCS; principal; 2017-04-23 17:00)
DX: K74.69 Other cirrhosis of liver (principal); I85.11 Secondary esophageal varices with bleeding; C22.0 Liver cell carcinoma; K76.6 Portal hypertension; D49.519 Neoplasm of unspecified behavior of unspecified kidney; I10 Essential (primary) hypertension; I86.4 Gastric varices; Z87.891 Personal history of nicotine dependence; E66.9 Obesity, unspecified; Z68.35 Body mass index [BMI] 35.0-35.9, adult
CPT/HCPCS: 36415; 80048; 80053; 82270; 83735; 84100; 84484; 85025; 85610; 85730; 86850; 86900; 86901; 90686; 93005; 96365; 96366; 96375; 96376; C9113; J0696; J0744; J2270; J2354; J2405; J2765; J3010; J7030; J7040; J7042

== ENCOUNTER 2017-04-29 15:37 | Outpatient (CLI) | payer OTHER ==
[~2017-04-29] VITALS: Ht 165.1 cm; Wt 93.6 kg
[~2017-04-29 15:37] MED LIST changes: +CIPR500T4 PO; +PROP10TA6 PO
[2017-04-29 15:48] VITALS: BP 129/63; PULSE 75; RESP 16; Ht 165.1 cm; Wt 93.6 kg
--- NOTE | 2017-04-29 16:22 | PN ---
Date/Time of Note Date/Time of Note DATE: 04/29/17 TIME: 16:15 Outpatient Progress Note Chief Complaint GI bleeding/HCC /hypertension/PUD/back pain HPI GI bleeding/patient was recently admitted with a GI bleeding, patient has portal hypertension, patient had banding, patient had no more black stool, no nausea vomiting, minimal upset stomach, HCC/patient has hepatocellular cancer, patient had some treatment, no documentation seen yet, patient was supposed to go for chemoembolization, and possible liver transplant list, patient to follow with the GI, Hypertension/no headache or dizziness, no blood in the urine, PUD/no nausea vomiting or heartburn at present, Back pain/patient complains of back pain, no loss of bladder or bowel control, Review of Systems Const: No Fever, no chills, no Wt. loss, no Fatigue, normal appetite, no diaphoresis. Eyes: No pain, no discharge, no redness, no visual change, no foreign body. ENT: No pain, no bleeding, no congestion, no sore throat, no dysphagia, no discharge or rhinitis. Lymph: No adenopathy, no tender nodes, no lymphedema. Resp: No SOB, no cough, no sputum, no wheezing, no chest pain. CV: No chest pain, no palpitaions, no GARNER, no PND, no edema. GI: Normal appetite, minimal abdominal pain, no nausea, no vomiting, no diarrhea , no blood, no constipation. : No frequency, no urgency, no dysuria, no hematuria, no flank pain, no discharge, no bleeding. Musc: N mild to moderate back pain, no neck pain, no knee pain, no restricted ROM. Skin: No rash, no skin lesions, no erythema, no laceration, no bruising, no pruritus. Neuro: No ORTEGA, no dizziness, no syncope, no seizure, no focal-weakness. Endo: No polyuria, no polydypsia, no dry-skin, no temp-intolerance. Psych: No hallucinations, no depression, no anxiety, no suicidal ideation. Ext: No edema, no pain, no ulcer, no weakness. Physical Exam Vital Signs Date Time Temp Pulse Resp B/P Pulse Ox O2 Delivery O2 Flow Rate FiO2 04/29/17 15:48 98.0 75 16 129/63 98 Room Air General Appearance: A 61 year-old [male who appears well-developed, well- nourished, in no acute distress. HEENT: Head normocephalic, atraumatic. Pupils equal, round, reactive to light and accommodate. Sclerae are no jaundice. Nasal turbinates pink without erythema or nasal discharge. Mucous membranes pink and moist without lesions. Oropharynx clear without any exudate or discharge. NECK: Supple. Trachea midline, No thyromegaly, No cervical lymphadenopathy, No mass, No carotid bruits, No JVD, Carotid pulses 2+ bilaterally. PULMONARY: Clear to auscultaion bilaterally, No retractions, Chest expansion symmetric bilaterally, no rales, no ronchi, no dulness on percussion. CARDIAC: Normal SI and S2, Regular rate and rythm, no murmur, gallop, or rub. GASTROINTESTINAL: Abdomen is soft, minimal abdominal discomfort,, Non Rigid, No distention, Positive bowel sounds x4 quadrants, Liver normal. SKIN: Warm, dry, no rash, no bruise, no echmosis. EXTREMITIES: Bilateral lower extremities no edema, no phlabitus, pulse palpable , no contracture. MUSCULOSKELETAL: Spine Normal, lumbosacral discomfort, n reduced range of motion , No swelling, no deformity, no clubbing, or cyanosis, the patient has no edema to bilateral lower extremities, dorsalis pedis pulses palpable bilaterally. NEUROLOGIC: The patient is awake, alert, oriented, responding to yes/no questions appropriately, moving all extremities, cranial nerve intact, normal strenght, normal power, normal coordination, normal gait. Allergies Coded Allergies: No Known Allergy (Unverified , 01/11/17) PMH GI bleeding/portal hypertension/cirrhosis/HCC/hypertension/PUD/back pain/ Possible renal cell carcinoma and thyroid mass, Social Hx No smoking, no drinking at present, patient had drank while patient was a kid, Family Hx Noncontributory Assessment/Plan Impression GI bleeding/SCC/hypertension/PUD/back pain Plan Patient education done about his condition, Patient encouraged to follow with the primary care physician and GI and hepato- biliary specialist, and endocrinology, Patient need to follow with the primary care physician, Patient need workup for thyroid mass and possible renal cell cancer, patient has been explained, patient need to follow with transplant center also, Protonix 40 mg p.o. daily, #30 Medications Home Meds Active Scripts Propranolol Hcl* (Propranolol Hcl*) 10 Mg Tablet, 10 MG PO BID, #60 TAB 1 Refill Prov:DORA CANTOR 04/24/17 Reported Medications [Lisinopril] No Conflict Check 02/05/17 [Amlodipine Besylate] No Conflict Check 02/05/17 Discontinued Scripts Ciprofloxacin Hcl* (Ciprofloxacin Hcl*) 500 Mg Tablet, 500 MG PO BID for 4 Days , #8 TAB Prov:DORA CANTOR 04/24/17 Hydromorphone Hcl* (Dilaudid*) 2 Mg Tablet, 1 MG PO Q6H Y for PAIN, #7 TAB Prov:BHAVANA GARCIA MD 01/11/17 RIA CUNNINGHAM MD Apr 29, 2017 16:22
== END 2017-04-29 16:09 | disposition home or self-care (01) ==
LOC: DCC 15:37
PROVIDERS: ATTEND Internal Medicine
DX: K92.2 Gastrointestinal hemorrhage, unspecified (principal); C80.1 Malignant (primary) neoplasm, unspecified; I10 Essential (primary) hypertension; K27.9 Peptic ulcer, site unspecified, unspecified as acute or chronic, without hemorrhage or perforation; M54.9 Dorsalgia, unspecified
CPT/HCPCS: G0463

== ENCOUNTER → 2017-05-31 | Outpatient (CLI) | END | disposition home or self-care (01) ==

== ENCOUNTER 2018-04-04 14:11 | Emergency (ER) | END 2018-04-04 19:14 | disposition home or self-care (01) ==

== ENCOUNTER 2018-04-05 08:00 | Emergency (ER) | END 2018-04-05 11:47 | disposition home or self-care (01) ==

== ENCOUNTER 2018-04-22 10:16 | Emergency (ER) | END 2018-04-22 15:50 | disposition home or self-care (01) ==

== ENCOUNTER 2018-04-23 11:22 | Emergency (ER) | END 2018-04-23 15:13 | disposition home or self-care (01) ==